=== PATIENT | male | born 1980 | race African-American/Black ===

== ENCOUNTER 2018-11-23 12:33 | Emergency (ER) | payer BC ==
[~2018-11-23] VITALS: Ht 175.3 cm; Wt 84.5 kg
[2018-11-23 13:37] VITALS: BP 132/73; PULSE 68; TEMP 98
== END 2018-11-23 17:00 | disposition left against medical advice (07) ==
LOC: COL.ER 12:33
DX: K08.89 Other specified disorders of teeth and supporting structures (principal)